=== PATIENT | female | born 1990 | race Two or more races ===

== ENCOUNTER 2023-12-11 06:59 | Day surgery (SDC) | payer OTHER ==
[2023-12-10 09:54] LABS: HEMATOCRIT 40.4 % (36.0-45.00); HEMOGLOBIN 13.8 g/dL (12.0-15.00); MEAN CELL VOLUME 93.4 fL (80.00-100.00); MEAN CORPUSCULAR HEMOGLOBIN 31.8 pg (27.00-32.0); MEAN CORPUSCULAR HGB CONC 34.1 g/dl (32.0-36.0); PLATELET COUNT 212 K/uL (150-450); RED BLOOD COUNT 4.33 M/uL (4.00-6.00); RED CELL DISTRIBUTION WIDTH 12.8 % (11.5-14.5)
[2023-12-10 10:19] LABS: PH,URINE 7.5 (5.0-8.0); URINE APPEARANCE Clear; URINE BILIRRUBIN Negative (NEGATIVE); URINE BLOOD Negative; URINE COLOR Yellow; URINE GLUCOSE Negative (NEGATIVE); URINE LEUKOCYTE Negative; URINE NITRATE Negative; URINE PROTEIN Negative (NEGATIVE); URINE UROBILINOGEN 0.2 E.U./dl
[2023-12-10 10:21] LABS: URINE RBC 3.7 uL (0.0-20.8)
[2023-12-10 10:31] LABS: INR 0.98; PARTIAL THROMBOPLASTIN TIME 31.1 SECONDS (22.0-34.0); PROTHROMBIN TIME 10.3 SECONDS (9.0-11.5)
[2023-12-10 10:46] LABS: URINE WBC 0.4 uL (0.0-23.2)
[2023-12-10 11:42] LABS: ALBUMIN 3.6 gm/dL (3.4-5.0); BILIRUBIN TOTAL 0.4 mg/dL (0.3-1.2); CALCIUM 9.3 mg/dL (8.5-10.1); CREATININE SERUM 0.5 mg/dL (0.55-1.02); GFR 141.23; GLOBULINA 3.5 G/DL (2.4-3.5); POTASSIUM 4.07 mEq/L (3.5-5.1); TOTAL PROTEIN 7.1 gm/dL (6.4-8.2)
[~2023-12-11 06:59] MED LIST: DOLOGESIC 500-1 EACH PO; KETO10TA2 PO; MEDROLPACK PO; NORFLEX100MG PO; SKELAXIN800 MG PO; TORADOL60 MG IM
[2023-12-11] MEDS ORDERED: CEFOXITIN SODIUM 2,000 MG VIAL IV ONE ×2 (12:09→13:00)
[2023-12-11] MEDS ORDERED: POVIDONE-IODINE 118 ML BOTT TOP ONE ×2 (12:21→13:00)
[2023-12-11] MEDS ORDERED: KETOROLAC TROMETHAMINE 60 MG VIAL IM STA (13:21)
[2023-12-11] MEDS ORDERED: RINGERS SOLUTION,LACTATED 1,000 ML IV SCH (13:30)
[2023-12-11] MEDS ORDERED: KETOROLAC TROMETHAMINE 60 MG VIAL IM ONE (16:19)
== END 2023-12-11 17:10 | disposition home or self-care (01) ==
LOC: CIR.AMB 06:59
PROVIDERS: ATTEND Obstetrics & Gynecology Gynecology
DX: O02.1 Missed abortion (principal)

== ENCOUNTER 2024-10-06 18:45 | Emergency (ER) | payer OTHER ==
[~2024-10-06] VITALS: Ht 157.5 cm; Wt 59.9 kg
[2024-10-06] MEDS ORDERED: 0.9 % SODIUM CHLORIDE 1,000 ML IV STA (20:23)
[2024-10-06 21:04] LABS: HEMATOCRIT 37.9 % (36.0-45.00); HEMOGLOBIN 13.1 g/dL (12.0-15.00); MEAN CELL VOLUME 93.8 fL (80.00-100.00); MEAN CORPUSCULAR HEMOGLOBIN 32.3 pg (27.00-32.0); MEAN CORPUSCULAR HGB CONC 34.5 g/dl (32.0-36.0); PLATELET COUNT 234 K/uL (150-450); RED BLOOD COUNT 4.04 M/uL (4.00-6.00); RED CELL DISTRIBUTION WIDTH 12.6 % (11.5-14.5)
[2024-10-06 21:22] LABS: URINE APPEARANCE Clear; URINE BILIRRUBIN Negative (NEGATIVE); URINE BLOOD Large; URINE COLOR Yellow; URINE GLUCOSE Negative (NEGATIVE); URINE KETONE Negative (NEGATIVE); URINE LEUKOCYTE Negative; URINE NITRATE Negative; URINE PROTEIN Negative (NEGATIVE); URINE UROBILINOGEN 0.2 E.U./dl
[2024-10-06 21:26] LABS: URINE BACTERIA 187.6 uL (0.0-1933); URINE EPITHELIAL CELLS 5.7 uL (0.0-38.8); URINE RBC 11.5 uL (0.0-20.8); URINE WBC 2.3 uL (0.0-23.2)
[2024-10-06 21:55] LABS: CALCIUM 9.6 mg/dL (8.5-10.1); CREATININE SERUM 0.5 mg/dL (0.55-1.02); GFR 140.4; POTASSIUM 3.58 mEq/L (3.5-5.1)
== END 2024-10-07 00:15 | disposition home or self-care (01) ==
LOC: ER 18:47
PROVIDERS: Emergency Medicine
DX: O20.8 Other hemorrhage in early pregnancy (principal); Z3A.15 15 weeks gestation of pregnancy

== ENCOUNTER 2025-03-22 12:46 | Inpatient (IN) | payer OTHER ==
[~2025-03-22] VITALS: Ht 157.5 cm; Wt 73.5 kg
[2025-04-06 14:14] VITALS: BP 123/72
[2025-04-06] MEDS ORDERED: PRENATAL TABLE1 EAC1 PO (14:35)
[2025-04-06 14:43] LABS: URINE APPEARANCE Clear; URINE BILIRRUBIN Negative (NEGATIVE); URINE BLOOD Moderate; URINE COLOR Yellow; URINE KETONE Trace (NEGATIVE); URINE LEUKOCYTE Negative; URINE NITRATE Negative; URINE PROTEIN Trace (NEGATIVE)
[2025-04-06 14:44] LABS: URINE BACTERIA 626.4 uL (0.0-1933); URINE EPITHELIAL CELLS 15.5 uL (0.0-38.8); URINE RBC 22.6 uL (0.0-20.8); URINE WBC 5.3 uL (0.0-23.2)
[2025-04-06 14:46] LABS: URINE CAST 0.14 uL (0.0-1.40); URINE GLUCOSE 100 MG/DL (NEGATIVE)
[2025-04-06 14:59] LABS: BASO % 0.2 % (0.1-1.2); EOS # 0.02 (0.04-0.54); EOS % 0.2 % (0.7-7.0); HEMATOCRIT 35.5 % (34.1-44.9); LYMPH # 0.94 (1.18-3.74); LYMPH % 8.4 % (19.3-53.1); MEAN CORPUSCULAR HEMOGLOBIN 30.2 pg (25.6-32.2); MONO # 0.76 (0.24-0.82); MONO % 6.8 % (4.7-12.5); NEUT # 9.46 (1.56-6.13); PLATELET COUNT 189 K/uL (163-369); RED BLOOD COUNT 3.98 M/uL (3.93-5.22); RED CELL DISTRIBUTION WIDTH 12.8 % (11.6-14.4)
[2025-04-06 15:10] LABS: INR < 0.93; PARTIAL THROMBOPLASTIN TIME 29.1 SECONDS (22.0-34.0); PROTHROMBIN TIME 9.9 SECONDS (9.0-11.5)
[2025-04-06 15:19] VITALS: BP 127/70
[2025-04-06 15:23] LABS: ALBUMIN 2.5 gm/dL (3.4-5.0); BILIRUBIN TOTAL 0.21 mg/dL (0.3-1.2); CALCIUM 8.6 mg/dL (8.5-10.1); CREATININE SERUM 0.62 mg/dL (0.55-1.02); GFR 109.54; GLOBULINA 3.9 G/DL (2.4-3.5); POTASSIUM 3.88 mEq/L (3.5-5.1); TOTAL PROTEIN 6.4 gm/dL (6.4-8.2)
[2025-04-06 19:05] VITALS: BP 129/72
[2025-04-06] MEDS ORDERED: MORPHINE SULFATE 4 MG/ML VIAL IV SCH (21:00)
[2025-04-06 23:24] VITALS: BP 113/68
[2025-04-07 03:44] VITALS: BP 94/51
[2025-04-07] MEDS ORDERED: OXYTOCIN 20 UNITS/500ML RL PIGGYBAG IV ONE (06:06)
[2025-04-07] MEDS ORDERED: OXYTOCIN 500 ML IV SCH (06:45)
[2025-04-07 07:34] VITALS: BP 127/75
[2025-04-07] MEDS ORDERED: MORPHINE SULFATE 4 MG/ML CARTRIDGE IV SCH (09:00)
[2025-04-07] MEDS ORDERED: OXYTOCIN 20 UNITS/1000ML RL PIGGYBAG IV ONE (10:12)
[2025-04-07] MEDS ORDERED: ERYTHROMYCIN BASE OPHT 1GM EACH TUBE OP ONE ×2 (10:12→11:36)
[2025-04-07] MEDS ORDERED: CHLORHEXIDINE GLUCONATE 120 ML BOTTLE TOP ONE (10:12)
[2025-04-07] MEDS ORDERED: LIDOCAINE HCL 1% 10ML VIAL ONE (10:12)
[2025-04-07] MEDS ORDERED: LIDOCAINE HCL 1% 10ML VIAL IJ ONE (11:40)
[2025-04-07] MEDS ORDERED: OXYTOCIN 1,000 ML IV SCH (12:15)
[2025-04-07] MEDS ORDERED: CHLORHEXIDINE GLUCONATE 120 ML BOTTLE TP SCH (12:15)
[2025-04-07] MEDS ORDERED: IBUprofen 400 MG TABLET PO PRN (12:15)
[2025-04-07 13:15] VITALS: BP 99/65
[2025-04-07 15:04] VITALS: BP 122/69; O2SAT 99
[2025-04-07 16:00] VITALS: BP 133/69
[2025-04-07 16:06] VITALS: BP 122/69; O2SAT 99
[2025-04-08 00:45] VITALS: BP 113/70
[2025-04-08 06:21] LABS: BASO % 0.2 % (0.1-1.2); EOS # 0.02 (0.04-0.54); EOS % 0.2 % (0.7-7.0); HEMOGLOBIN 10.8 g/dL (11.2-15.7); LYMPH # 1.24 (1.18-3.74); MEAN CORPUSCULAR HEMOGLOBIN 30.6 pg (25.6-32.2); MONO # 0.88 (0.24-0.82); MONO % 7.1 % (4.7-12.5); NEUT # 10.21 (1.56-6.13); PLATELET COUNT 150 K/uL (163-369); RED BLOOD COUNT 3.53 M/uL (3.93-5.22)
[2025-04-08 08:40] VITALS: BP 107/60; O2SAT 98
[2025-04-08 13:58] VITALS: BP 120/65; O2SAT 98
[2025-04-08 16:00] VITALS: BP 140/85; O2SAT 97
[2025-04-09 01:42] VITALS: BP 128/77
[2025-04-09 09:32] VITALS: BP 122/77
== END 2025-04-09 14:29 | disposition home or self-care (01) | DRG 807 ==
LOC: OB/GYN 04-05 12:45 → LDR 04-06 13:47 → OB/GYN 04-07 13:21
PROVIDERS: Obstetrics & Gynecology; ADMIT Obstetrics & Gynecology; ATTEND Obstetrics & Gynecology
PROC: 4A1HXCZ Monitoring of Products of Conception, Cardiac Rate, External Approach (ICD-10-PCS; 2025-04-06)
PROC: 10E0XZZ Delivery of Products of Conception, External Approach (ICD-10-PCS; principal; 2025-04-07)
PROC: 0KQM0ZZ Repair Perineum Muscle, Open Approach (ICD-10-PCS; 2025-04-07)
DX: O70.1 Second degree perineal laceration during delivery (principal); Z37.0 Single live birth; Z3A.40 40 weeks gestation of pregnancy

== ENCOUNTER 2025-03-22 17:42 | Outpatient (CLI) | payer OTHER | END 2025-03-22 19:35 | disposition home or self-care (01) | LOC: NST 17:42 | PROVIDERS: ATTEND Obstetrics & Gynecology Gynecology | DX: Z34.83 Encounter for supervision of other normal pregnancy, third trimester (principal) ==

== ENCOUNTER 2025-04-02 13:44 | Outpatient (CLI) | payer OTHER | END 2025-04-02 14:44 | disposition home or self-care (01) | LOC: NST 13:44 | PROVIDERS: ATTEND Obstetrics & Gynecology | DX: Z34.83 Encounter for supervision of other normal pregnancy, third trimester (principal) ==